=== PATIENT | male | born 1935 | race Caucasian/White ===

== ENCOUNTER → 2019-02-04 10:48 | Outpatient (CLI) | payer MEDICARE, BC, SELFPAY | PROVIDERS: PCP Family Medicine; Visit Provider Physician Assistant | DX: I49.9 Cardiac arrhythmia, unspecified (principal) | CPT/HCPCS: 93005 ==

== ENCOUNTER → 2019-02-08 08:28 | Outpatient (CLI) | payer MEDICARE, BC, SELFPAY | PROVIDERS: PCP Family Medicine; Visit Provider Physician Assistant | DX: I49.9 Cardiac arrhythmia, unspecified (principal) | CPT/HCPCS: 93225; 93226 ==

== ENCOUNTER → 2019-02-16 14:50 | Outpatient (CLI) | payer MEDICARE, BC, SELFPAY ==
--- NOTE | 2019-02-16 14:54 | CA_ITS ---
PROCEDURE: 2-D M-mode and color Doppler study INDICATIONS FOR THE TEST: Chest pain COPD Heart Murmur Tobacco Smokingex Palpitations+ Fatigue+ Syncope Edema Hypertension+Diabetes Mellitus Rheumatic Fever SOB MARSHALL Obesity Hyperlipidemia+ Family History HD Additional History SICK SINUS SYNDROME, BRADYCARDIA,ABN EKG,DIZZINESS PATIENT INFORMATION HEIGHT:67 WEIGHT:185 GENDER: Male B/P:150/99 2-D/M-MODE INTERPRETATION: 2-D MEASUREMENTS OBSERVED VALUES IN CMS Right Ventricular Dimension (RVDd) 2.3 Interventricular Septum (Thickness)(IVsd) 1.0 Left Ventricular Internal Dimensions(LVIDd) 6.1 Left Ventricular Posterior Wall (Thickness)(LVPWd) 1.0 Aortic Root 3.1 Aortic Cusp Separation 2.1 Left Atrial Dimensions (LAD) 2.5 2D 1. Left atrium is mildly enlarged, left ventricle is normal size, mild concentric left ventricular hypertrophy, visually estimated ejection fraction of 55% with no regional wall motion abnormality. Endocardial surfaces are poorly visualized. 2. The right atrium and right ventricle are mildly enlarged with normal contractility. 3. The aortic valve is thickened and calcified leaflet continue to display mobility. 4. The mitral and tricuspid valve leaflets are minimally thickened. 5. The pulmonic valve is poorly present. 6. No significant pericardial effusion noted. DOPPLER INTERROGATION: Doppler interrogation of the aortic, mitral and tricuspid valvular presence of mild mitral and tricuspid regurgitation, tricuspid regurgitation jet velocity is inadequate for calculation of the right ventricular systolic pressure, diastolic parameters are inconclusive. CONCLUSION: 1. Mildly enlarged left atrium, normal left ventricular size, mild concentric left ventricular hypertrophy, visually estimated ejection fraction 55% with no regional wall motion abnormality, endocardial surfaces are poorly visualized. Diastolic parameters are inconclusive 2. Mildly enlarged right ventricle with normal contractility. 3. Mild mitral and tricuspid regurgitation 4. No significant pericardial effusion noted.
== END ==
PROVIDERS: PCP Family Medicine; Visit Provider Urology
DX: R00.2 Palpitations (principal); R40.0 Somnolence; R42 Dizziness and giddiness; R53.1 Weakness; R53.83 Other fatigue; R94.31 Abnormal electrocardiogram [ECG] [EKG]
CPT/HCPCS: 93306

== ENCOUNTER → 2019-02-28 14:28 | Outpatient (CLI) | payer MEDICARE, BC, SELFPAY ==
[2019-02-28 16:45] LABS: Blood Urea Nitrogen 19 mg/dL (7-18); Carbon Dioxide 27 mmol/L (21.0-32.0); Chloride 104 mmol/L (98-107); Creatinine,Serum 1.18 mg/dL (0.70-1.30); Estimated Glomerular Filt Rate 59 ml/min (>60); GFR (African American) 72 ML/MIN (>60); Glucose 98 mg/dL (74-106); Sodium 141 mmol/L (136-145)
== END ==
PROVIDERS: Visit Provider Internal Medicine
DX: I11.9 Hypertensive heart disease without heart failure (principal); R00.1 Bradycardia, unspecified; R42 Dizziness and giddiness
CPT/HCPCS: 36415; 80048

== ENCOUNTER → 2019-03-25 06:56 | Outpatient (CLI) | payer MEDICARE, BC, SELFPAY ==
--- NOTE | 2019-03-25 07:01 | NM_ITS ---
CARDIOLITE SPECT MYOCARDIAL PERFUSION LEXISCAN, REST AND STRESS: History: Hypertension, hyperlipidemia, family history. Procedure: Patient received a 0.4 mg of Lexiscan, resting heart rate was 77 beats per resting blood pressure 171/99, with Lexiscan maximum heart rate achieved was 92 bpm which is less than 85% of the maximum predicted heart rate and a blood pressure 133/80. Electrocardiogram: Resting electrocardiogram showed sinus rhythm, with Lexiscan there is less than 1.[address] segment depression noted from the baseline EKG. The EKG portion of the Lexiscan Myoview is nondiagnostic. Cardiac stress and resting SPECT images: Cardiac stress and resting SPECT images were obtained using technetium 99 Myoview 31.4 mCi stress and 10.2 mCi at rest gated SPECT further analysis of segmental wall motion and calculation of the ejection fraction also done. Cardiac stress and resting SPECT images show uniform myocardial activity without segmental perfusion abnormality, computer derived ejection fraction is 47% with no regional wall motion abnormality, right ventricle is normal size and contractility. Conclusion: 1. The EKG portion of the Lexiscan Myoview is nondiagnostic. 2. No scintigraphic evidence of reversible ischemia seen, either derived ejection fraction is 47% with no regional wall motion abnormality, right ventricle is normal size and contractility. 3. Normal Lexiscan Myoview study.
--- NOTE | 2019-03-25 10:44 | HMH.ITSHM ---
Current Home Medications as stated by this patient Rene Viramontes or traveling sales representative. []
--- NOTE | 2019-03-25 10:44 | HMH.ITSHM ---
Current Home Medications as stated by this patient Rene Viramontes or paper sales representative. []bisoprolol pravastatin amlodipine meloxicam lisinopril allopurinol xarelto
== END ==
LOC: RAD 06:57
PROVIDERS: PCP Family Medicine; Visit Provider Internal Medicine
DX: I10 Essential (primary) hypertension (principal); I48.91 Unspecified atrial fibrillation; R00.0 Tachycardia, unspecified; R94.31 Abnormal electrocardiogram [ECG] [EKG]
CPT/HCPCS: 78452; 93017; A9502; J2785

== ENCOUNTER → 2019-05-03 14:59 | Outpatient (CLI) | payer MEDICARE, BC, SELFPAY | PROVIDERS: PCP Family Medicine; Visit Provider Physician Assistant | DX: R40.0 Somnolence; R53.83 Other fatigue; G47.33 Obstructive sleep apnea (adult) (pediatric) | CPT/HCPCS: G0399 ==

== ENCOUNTER → 2019-10-27 19:42 | Outpatient (CLI) | payer MEDICARE, BC, SELFPAY | PROVIDERS: PCP Family Medicine; Visit Provider Internal Medicine Cardiovascular Disease | DX: G47.33 Obstructive sleep apnea (adult) (pediatric) (principal); I48.91 Unspecified atrial fibrillation | CPT/HCPCS: 95811 ==

== ENCOUNTER → 2020-06-20 11:07 | Outpatient (CLI) | payer MEDICARE, BC, SELFPAY ==
[2020-06-20 12:44] LABS: Anion Gap 12.6 mEq/L (5-15); Blood Urea Nitrogen 25 mg/dl (9-20); Calcium 9.9 mg/dl (8.4-10.2); Carbon Dioxide 29 mmol/L (22.0-30.0); Chloride 102 mmol/L (98-107); Estimated Glomerular Filt Rate 41 ml/min (>60); GFR (African American) 50 ML/MIN (>60); Glucose 94 mg/dl (74-100); Potassium 4.6 mmoL/L (3.5-5.1); Sodium 139 mmol/L (136-145)
== END ==
PROVIDERS: Visit Provider Nurse Practitioner Family
DX: E78.2 Mixed hyperlipidemia (principal); I11.9 Hypertensive heart disease without heart failure; I48.0 Paroxysmal atrial fibrillation; R53.83 Other fatigue; R94.31 Abnormal electrocardiogram [ECG] [EKG]
CPT/HCPCS: 36415; 80048

== ENCOUNTER 2020-08-22 20:06 | Inpatient (IN) | payer MEDICARE, BC, SELFPAY ==
[2020-08-22] VITALS (7 sets, daily range): BP systolic 128–148; BP diastolic 69–94; PULSE 70–78; RESP 16–24; TEMP 36.9–37.2; O2SAT 92–94; BMI 29.4; BMI 28.4
--- NOTE | 2020-08-22 20:32 | XR_ITS ---
PROCEDURE: XR CHEST 2V CLINICAL HISTORY: weakness COMPARISON: CR LS5 LUMBAR SPINE 5 VIEWS from 06/16/2017 FINDINGS: There is cardiomegaly without failure. Bipolar pacemaker is present from left subclavian approach. No lobar consolidation or collapse. There is increased density in the retrocardiac region which may be related to hiatal hernia. There does appear to be an air-fluid level in this area on the lateral view. IMPRESSION: Cardiomegaly with pacemaker present with hiatal hernia. Dictated by: Corbin Millard MD 08/23/2020 05:25 Corbin Millard MD in [place] 08/23/2020 05:25
--- NOTE | 2020-08-22 20:33 | ECG_ITS ---
APPROVED REPORT Exam: Resting ECG HR:71 bpm ECG Measurements Heart Rate 71 AXES MD 114 P -7 QRSd 74 QRS 16 QT 404 T 7 QTc 439 Conclusion Normal sinus rhythm Nonspecific ST abnormality Abnormal ECG Electronically signed by : Ricardo Sanchez, 08/24/2020 18:16:02
--- NOTE | 2020-08-22 20:38 | HMH.EDWEAK ---
ED Disposition Clinical Impression: MONISHA (acute kidney injury) Disposition: Admitted As Inpatient Condition on Discharge: Fair Referrals: Aki Smith MD [Primary Care Provider] - - Critical Care Critical Care Time: No Attestation: On 08/22/20, the high probability of a clinically significant, sudden or life threatening deterioration of the following system(s) required my full and direct attention, intervention and personal management. The time I documented below is in addition to time spent performing reported procedures but includes the following listed in this critical care notation. Medical Decision Making - Medical Records Medical records reviewed: Yes: I reviewed the patient's medical records. - [place] Inquiry Pt receiving controlled substance: No Vital Signs: 08/22/20 20:07 08/22/20 20:38 08/22/20 21:04 Temperature 98.9 F Temperature Source Oral Pulse Rate [Left Radial] 71 70 78 Respiratory Rate 16 18 16 Blood Pressure [Right Arm] 128/82 134/94 H 148/90 H Blood Pressure Mean [Right Arm] 97 107 109 Blood Pressure Source [Right Arm] Automatic Cuff Automatic Cuff Blood Pressure Position [Right Arm] Sitting Sitting 02 Sat by Pulse Oximetry 94 L 92 L 93 L Oxygen Delivery Method Room Air Room Air Room Air - Lab Data Lab results reviewed: Yes: I reviewed the patient's lab results. Lab Results 08/22/20 20:20: WBC 3.8 L, RBC 4.25 L, Hgb 13.4 L, Hct 41.8 L, MCV 98.3 H, MCH 31.6 H, MCHC 32.1, RDW 14.0, Plt Count 170, MPV 7.2 L, Neut % (Auto) 64.4, Lymph % (Auto) 23.3, [place] % (Auto) 11.0 H, Eos % (Auto) 0.4, Baso % (Auto) 1.0, Neut # (Auto) 2.4, Lymph # (Auto) 0.9, [place] # (Auto) 0.4, Eos # (Auto) 0.0, Baso # (Auto) 0.0 08/22/20 20:20: Sodium 140, Potassium 4.4, Chloride 104, Carbon Dioxide 25, Anion Gap 15.4 H, BUN 41 H, Creatinine 3.10 H, Estimated Creat Clear 22, Estimated GFR 19 L*, Est GFR ( Amer) 23 L, Glucose 117 H, Calcium 8.8, Total Bilirubin 0.3, AST 34, ALT 20, Alkaline Phosphatase 79, Troponin I < 0.01, Total Protein 7.3, Albumin 4.3, Globulin 3.0, Albumin/Globulin Ratio 1.4, TSH 3.78 08/22/20 20:20: Free T4 1.13 Result diagrams: 08/22/20 20:20 08/22/20 20:20 Orders (Tests/Meds): ED MEDICATIONS Generic Name Dose Route Start Last Admin Trade Name Freq PRN Reason Stop Dose Admin Sodium Chloride 1,000 mls @ 999 mls/hr 08/22/20 20:45 08/22/20 20:47 Sod Chlor 0.9% 1000ml Bag IV 08/22/20 21:45 999 mls/hr .Q1H1M JANNETH Administration ORDERS Category Date Time Status XR chest 2V Stat Exams 08/22/20 20:32 Taken Covid-19 IgG/IgM ([facility]) Stat Lab 08/22/20 21:29 Ordered Troponin I Q3H Lab 08/22/20 23:45 Ordered Troponin I Q3H Lab 08/23/20 02:45 Ordered Urinalysis and Microscopic Stat Lab 08/22/20 21:24 Ordered - Radiology Data #1 Image(s): Chest Image Reviewed: Yes I reviewed the patient's radiology image Preliminary Findings: Abnormal (cm ) - ECG Data Tracing #1 Normal Sinus Rhythm: Yes Ischemic changes: non-specific ST-T wave changes - Physician Consults Physician Consulted: adarsh Reason -: Admission Weakness HPI - General Chief complaint: Weakness Stated complaint: Pace marker year ago BP dropping Time Seen by Provider: 08/22/20 20:38 Mode of Arrival: Ambulatory Source of Information: Patient, Relative, Medical Record Limitations: No Limitations Description of Symptoms (Recalled from ER Triage Doc. by RN): pt stated he has been feeling tired and weak since last night. pt family stated they took the pts BP manually at home tonight and got mid 80s systolic so the family brought him in to be assessedat the ER. pt denies any chest pain or SOB at this time and stated he feels like he doesnt have as much energy as he usually does. - History of Present Illness HPI Narrative: pt with weakness and low bp tonight - no vomiting or diarrhea - no chest pain - no syncope MD Complaint: generalized weakness Onset (ago): day(s) Migration:
[2020-08-22 20:45] LABS: Chloride 104 mmol/L (98-107); Potassium 4.4 mmoL/L (3.5-5.1); Sodium 140 mmol/L (136-145)
[2020-08-22 20:46] LABS: Eosinophils % 0.4 % (0.1-12.0); Hematocrit 41.8 % (42.0-52.0); Hemoglobin 13.4 g/dL (14.1-18.0); Lymphocytes # 0.9 K/mm3 (0.7-4.5); Lymphocytes % 23.3 % (10-50); Mean Corpuscular HGB Conc 32.1 g/dL (31.8-35.4); Mean Corpuscular Hemoglobin 31.6 pg (27.0-31.2); Mean Corpuscular Volume 98.3 fl (80-94); Mean Platelet Volume 7.2 fl (7.4-10.4); Monocytes # 0.4 K/mm3 (0.1-1.0); Neutrophils # 2.4 K/mm3 (1.8-7.8); Neutrophils % 64.4 % (37.0-80.0); Platelet Count 170 K/mm3 (142-424); Red Blood Count 4.25 M/mm3 (4.60-6.20); White Blood Count 3.8 K/mm3 (4.8-10.8)
[2020-08-22 20:48] LABS: Alanine Aminotransferase 20 U/L (12-78); Albumin Level 4.3 g/dl (3.5-5.0); Albumin/Globulin Ratio 1.4 (1.1-1.8); Alkaline Phosphatase 79 U/L (38-126); Anion Gap 15.4 mEq/L (5-15); Aspartate Amino Transferase 34 U/L (17-59); Bilirubin,Total 0.3 mg/dl (0.2-1.3); Blood Urea Nitrogen 41 mg/dl (9-20); Carbon Dioxide 25 mmol/L (22.0-30.0); Creatinine Clearance Estimated 22 mL/min (50-200); Estimated Glomerular Filt Rate 19 ml/min (>60); GFR (African American) 23 ML/MIN (>60); Total Protein,Serum 7.3 g/dl (6.3-8.2)
[2020-08-22 20:49] LABS: Calcium 8.8 mg/dl (8.4-10.2); Glucose 117 mg/dl (74-100)
[2020-08-22 21:03] LABS: Troponin I < 0.01 ng/ml (0.00-0.034)
[2020-08-22 21:13] LABS: Free T4 (Free Thyroxine) 1.13 ng/dl (0.78-2.19)
[2020-08-22 21:19] LABS: Thyroid Stimulating Hormone 3.78 uIU/mL (0.465-4.68)
--- NOTE | 2020-08-22 21:40 | PC.NURSE ---
speaking with Dr. Lovett for admission
[2020-08-22 22:10] LABS: Coronavirus 19 IgG Antibody Negative (Negative); Coronavirus 19 IgM Antibody Negative (Negative)
--- NOTE | 2020-08-22 22:11 | PC.NURSE ---
called for second floor nurse to get report
--- NOTE | 2020-08-22 23:19 | PC.NURSE ---
patient arrived to floor via wheelchair 22:33.
[2020-08-23] VITALS (7 sets, daily range): BP systolic 104–125; BP diastolic 60–79; PULSE 70–77; RESP 17–21; TEMP 36.7–37.7; O2SAT 90–95; BMI 28.4
[2020-08-23 00:23] LABS: Troponin I < 0.01 ng/ml (0.00-0.034)
--- NOTE | 2020-08-23 02:39 | PC.NURSE ---
Pt is alert and oriented x4. Pt denies any pain since arriving to unit. Denies nausea and vomiting. States he just feels weak and tired . Pt has rested well with eyes closed thus far. PERRLA. Bilateral hand hedis nurse noted equal and strong. Cap refill < 3 seconds. Bilateral lungs noted clear t/o upon auscultation. Tolerated RA well with no c/o SOA. Abdomen noted soft and non-tender upon palpation. Adequate urine output. Pt prefers walking to the bathroom with standby assist versus using the urinal. Tolerates amb well with standby. Refused teds and non-skid socks. Encouraged use of non-skid socks due to weakness. Skin noted C/D/I. No edema noted. NSR noted on director cardiac thus far. VSS. Remains safe. Call light within reach. Will continue to monitor.
[2020-08-23 03:02] LABS: Troponin I < 0.01 ng/ml (0.00-0.034)
[2020-08-23 06:56] LABS: Basophils % 0.5 % (0.1-2.0); Eosinophils % 0.6 % (0.1-12.0); Hematocrit 38.1 % (42.0-52.0); Lymphocytes % 31.6 % (10-50); Mean Corpuscular HGB Conc 31.3 g/dL (31.8-35.4); Mean Corpuscular Hemoglobin 30.9 pg (27.0-31.2); Mean Corpuscular Volume 98.8 fl (80-94); Mean Platelet Volume 7.2 fl (7.4-10.4); Monocytes # 0.3 K/mm3 (0.1-1.0); Monocytes % 10.1 % (1.7-9.3); Neutrophils # 1.9 K/mm3 (1.8-7.8); Neutrophils % 57.2 % (37.0-80.0); Platelet Count 142 K/mm3 (142-424); Red Blood Count 3.86 M/mm3 (4.60-6.20); Red Cell Distribution Width 14.1 % (11.5-17.5); White Blood Count 3.3 K/mm3 (4.8-10.8)
--- NOTE | 2020-08-23 07:23 | HMH.PHAVTE ---
[facility] Pharmacy VTE Monitoring - Patient Demographics Admission date: 08/22/20 Report Date: 08/23/20 Time: 07:23 Allergies/Adverse Reactions: Patient Allergies No Known Allergies Allergy (Verified 08/01/20 09:48) Height: 1.7 m Weight: 82.27 kg Patient Problems: Current Active Problems MONISHA (acute kidney injury) (Acute) - VTE Risk Labs: VTE Related Lab Results Hgb 13.4 g/dL (14.1-18.0) L 08/22/20 20:20 Hct 41.8 % (42.0-52.0) L 08/22/20 20:20 Plt Count 170 K/mm3 (142-424) 08/22/20 20:20 BUN 41 mg/dl (9-20) H 08/22/20 20:20 Creatinine 3.10 mg/dl (0.66-1.25) H 08/22/20 20:20 Estimated Creat Clear 22 mL/min (50-200) 08/22/20 20:20 Was VTE Risk Assessment Performed: Yes VTE Score: 4 VTE Risk Level: Low Risk - Prophylaxis VTE Prophylaxis Ordered?: Yes Types of VTE Prophylaxis: TEDS Knee High Location of Applied Device: Bilateral Lower Extremeties
[2020-08-23 07:52] LABS: Chloride 106 mmol/L (98-107); Sodium 139 mmol/L (136-145)
[2020-08-23 07:55] LABS: Blood Urea Nitrogen 37 mg/dl (9-20); Calcium 8.2 mg/dl (8.4-10.2); Carbon Dioxide 26 mmol/L (22.0-30.0); Creatinine Clearance Estimated 28 mL/min (50-200); Estimated Glomerular Filt Rate 27 ml/min (>60); GFR (African American) 33 ML/MIN (>60); Glucose 97 mg/dl (74-100); Magnesium 1.5 mg/dl (1.6-2.3)
--- NOTE | 2020-08-23 08:00 | CA_ITS ---
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: Antonette Martínez, RT(R) Ht: 5 ft 7 in Wt: 188lbs BSA: 1.97 BP: 148/90 mmHg Indications: MURMUR,PP,FATIGUE,H/O AF,HTN 2D Dimensions LVOT 1.92 cm (M/F) 1.5-2.5 M-Mode Dimensions RVDd 2.90 cm (0.9-2.6) LA Diam 2.66 cm (1.9-4.0) LVDd 5.47 cm (3.5-5.7) Ao Diam 3.67 cm (2.0-3.7) LVDs 3.94 cm (3.5-5.7) IVSd 1.13 cm (0.6-1.1) PWd 0.93 cm (0.6-1.1) EF (Teich) 53.60% FS 28.00% EDV (Teich) 145.60 mL ESV (Teich) 67.50 mL LV Diastology E Decel Time 180.00 (160-240 msec) E/A Ratio 0.8 MED E' 4.70 (< 7 cm/sec) E'/MED E' Ratio 13.04 (>14) LAT E' 6.20 (<10 cm/sec) E/LAT E' Ratio 9.89 (>14) Mitral Valve MV E Max Don. 61.00 (40-130 cm/s) MV A Velocity 73.00 (40-130 cm/s) E/A Ratio 0.84 MV Decel. Time 180.00 (160-240 ms) MV PHT 53.00 ms Tricuspid Valve TR P. Velocity 283.00 cm/s RAP Estimate 10.00 mmHg RVSP 42.10 mmHg Left Ventricle Left atrium is mildly enlarged, left ventricle is normal size, mild concentric left ventricular hypertrophy, visually estimated ejection fraction 55% with no regional wall motion abnormality, grade 1 diastolic dysfunction seen without tissue Doppler evidence of raise left atrial pressure. Right Ventricle Right atrium and right ventricle are mildly enlarged with normal contractility. There is a pacemaker lead seen the right ventricle. Aortic Valve Aortic valve is minimally thickened and fibrosed, there is no aortic stenosis or aortic insufficiency. Mitral Valve Mitral valve leaflets are minimally thickened, there is mild mitral regurgitation Tricuspid Valve Tricuspid valve is grossly normal, there is mild tricuspid regurgitation calculated right ventricular systolic pressure is 42 mmHg. Pulmonic Valve Pulmonic valve is poorly visualized. Great Vessels Aortic root is normal size. Pericardium No significant pericardial effusion noted. Conclusion 1. Biatrial enlargement, normal left ventricular size, mild concentric left ventricular hypertrophy, visually estimated ejection fraction 55% with no regional wall motion abnormality, grade 1 diastolic dysfunction seen without tissue Doppler evidence of raise left atrial pressure. 2. Mildly enlarged right ventricle with normal contractility. 3. Mild mitral and tricuspid regurgitation, calculated right ventricular systolic pressure is 42 mmHg. 4. No significant pericardial effusion noted. Electronically signed by : Jesus Oscar, 08/23/2020 15:39:10
[2020-08-23 08:07] LABS: Hemoglobin 11.9 g/dL (14.1-18.0)
--- NOTE | 2020-08-23 08:07 | HMH.PHAINT ---
MEDICATION RECONCILIATION COMPLETED ON PATIENT USING EXTERNAL FILL HISTORY FROM PHARMACY. -MARTIN LAURENT, ANAD
--- NOTE | 2020-08-23 08:30 | HMH.HP ---
*Admission Date: 08/22/20 <Yadi Unger 08/23/20 08:37> *Chief complaint: Acute Kidney Injury <Justino Unger08/23/20 08:37> *History of present illness: Mr. 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 He describes a two-day history of generalized weakness, decreased appetite, and fatigue at home. When he mentioned his symptoms to family yesterday evening, it was found that his blood pressure was low with systolic readings in the 80's and he was brought to the [facility] for evaluation. He denied any vomiting or diarrhea. He did not have any pain, chest pain, or shortness of breath. Upon arrival, bloodwork showed an elevated BUN of 41 and creatinine of 3.10 with GFR 19. His CXR showed cardiomegaly with pacemaker present with hiatal hernia. EKG showed NSR with nonspecific ST-T wave changes. He was admitted for gentle IV hydration. This morning he is resting comfortably in bed with his son at the bedside. He denies any complaint and reports feeling much better than he did prior to admission. He tolerated breakfast well. He has been up to void. <Justino Unger08/23/20 08:56> [facility] History Medical History: Reports:: Anxiety, Atrial Fibrillation, Gastroesophageal Reflux Disease(GERD), Hiatal Hernia, Hyperlipidemia, Hypertension, Internal Pacemaker Denies:: Cancer, Diabetes Mellitus Type 1, Diabetes Mellitus Type 2, MRSA, Seizures <Justino Unger08/23/20 08:56> *Have you ever received a pneumonia vaccine?: Yes <Justino Unger08/23/20 08:37> *Have you received a flu vaccine this season?: Yes <Justino Unger08/23/20 08:37> Other Medical History: Reports: Arthritis, Other ([place]). Denies: Blood Transfusion Reaction <Justino Unger08/23/20 08:37> Other Surgeries: Yes: Cardiac Catheterization, Hernia Repair, Pacemaker <Justino Unger08/23/20 08:37> Amputation: No <Justino Unger08/23/20 08:37> Fractures: No <Justino Unger08/23/20 08:37> - *Social History Last grade of school completed: 11th or 12th <CornelYadi 08/23/20 08:37> Smoking Status: Former smoker <Justino Unger08/23/20 08:37> Tobacco Type: pipe <CornelJustino08/23/20 08:37> Alcohol Intake: never <Justino Unger08/23/20 08:37> Alcohol Intake Frequency:: other <Justino Unger08/23/20 08:37> Substance Use Type: denies use <Justino Unger08/23/20 08:37> *Occupational Status:: retired <Justino Unger08/23/20 08:37> Housing: house <Justino Unger08/23/20 08:37> Household Members: none <Justino Unger08/23/20 08:37> *Travel in the last 8 weeks: None <Justino Unger08/23/20 08:37> - Psychiatric History Pschychiatric History:: Reports:: Anxiety <Justino Unger08/23/20 08:37> Family Hx:: Diabetes <Cornel08/23/20 08:37> Review of Systems - Constitutional Reports daytime sleepiness, Reports fatigue, Reports lack of energy, Reports weakness, Denies body ache(s), Denies chills, Denies fever(s), Denies headache(s), Denies increased appetite, Denies weight gain, Denies weight loss <Justino Unger08/23/20 08:56> - Eyes Denies blurry vision, Denies change in vision <Cornel08/23/20 08:56> - ENT Denies dizziness, Denies nasal congestion, Denies nasal discharge, Denies sinus pressure, Denies sore throat, Denies dizziness <Cornel08/23/20 08:56> - *Cardiovascular Reports leg swelling, Denies chest pain, Denies shortness of breath, Denies shortness of breath with activity, Denies irregular heart rhythm, Denies lightheadedness <Justino Unger08/23/20 08:56> - *Respiratory Denies chest congestion, Denies cough, Denies shortness of breath, Denies shortness of breath with activity <Yadi Unger 08/23/20 08:56> - *Gastrointestinal Reports nausea, Denies abdominal pain, Denies change in bowel habits, Denies vomiting <Yadi Unger 08/23/20 08:56> - *Genitourinary Denies difficulty urinating, Denies decreased urination <Yadi Unger 08/23/20 08:56> - *Neurologic Reports weakness, Denies unsteadiness, Denies dizziness, Manuel
--- NOTE | 2020-08-23 10:15 | PC.NURSE ---
REPORT GIVEN TO NIRMAL BERMEO RN. PATIENT HAS REMAINED A/OX4 MY SHIFT. NO COMPLAINTS VOICED. LUNGS CTA AND BOWEL SOUNDS ACTIVE X4. NO DISTRESS THIS SHIFT. NO WEAKNESS REPORTED.
--- NOTE | 2020-08-23 20:29 | PC.NURSE ---
PT IS RESTING IN BED. NO COMPLAINTS OF DISCOMFORT. PT STATES HE HAS NOT HAD ANY DIZZINESS AT ALL T/O THE SHIFT. TOLERATED AMBULATING TO THE BATHROOM AND TAKING A SHOWER. PACED ON THE MONITOR. SKIN C/D/I. EATING AND DRINKING WELL. VSS. WILL CONTINUE TO MONITOR.
--- NOTE | 2020-08-23 22:21 | PC.NURSE ---
2100 COURTESY ROUND PT AWAKE . TRASH AND URINAL EMPTIED. ICE WATER REFILLED AT THIS TIME.
[2020-08-24] VITALS: BP 121/67; PULSE 70; PULSE 73; RESP 16; TEMP 38.2; O2SAT 90
[2020-08-24 04:00] VITALS: BP 110/60; PULSE 70; PULSE 73; RESP 16; TEMP 37.9; O2SAT 94
[2020-08-24 05:02] VITALS: BMI 29.5
--- NOTE | 2020-08-24 06:22 | PC.NURSE ---
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
[2020-08-24 06:30] LABS: Basophils % 0.5 % (0.1-2.0); Eosinophils % 0.9 % (0.1-12.0); Hematocrit 37.6 % (42.0-52.0); Hemoglobin 12.4 g/dL (14.1-18.0); Lymphocytes # 0.9 K/mm3 (0.7-4.5); Lymphocytes % 27.4 % (10-50); Mean Corpuscular HGB Conc 32.9 g/dL (31.8-35.4); Mean Corpuscular Hemoglobin 31.9 pg (27.0-31.2); Mean Corpuscular Volume 97.2 fl (80-94); Mean Platelet Volume 7.3 fl (7.4-10.4); Monocytes # 0.3 K/mm3 (0.1-1.0); Monocytes % 10.3 % (1.7-9.3); Platelet Count 138 K/mm3 (142-424); Red Blood Count 3.87 M/mm3 (4.60-6.20); Red Cell Distribution Width 14.3 % (11.5-17.5); White Blood Count 3.3 K/mm3 (4.8-10.8)
[2020-08-24 06:31] LABS: Chloride 107 mmol/L (98-107); Potassium 4.1 mmoL/L (3.5-5.1); Sodium 137 mmol/L (136-145)
[2020-08-24 06:34] LABS: Anion Gap 8.1 mEq/L (5-15); Blood Urea Nitrogen 27 mg/dl (9-20); Carbon Dioxide 26 mmol/L (22.0-30.0); Creatinine Clearance Estimated 42 mL/min (50-200); Estimated Glomerular Filt Rate 41 ml/min (>60); GFR (African American) 50 ML/MIN (>60); Glucose 95 mg/dl (74-100)
[2020-08-24 08:00] VITALS: BP 111/58; PULSE 80; PULSE 88; RESP 18; TEMP 37.2; O2SAT 93
--- NOTE | 2020-08-24 08:24 | HMH.ACPN2 ---
<Yadi Unger - Last Filed: 08/24/20 08:26> Internal Medicine - PN: Subj *Date: 08/24/20 *Time: 08:26 Interval history: Pt reports feeling much better this morning. He denies any pain or SOB. He has been voiding qshift and had normal BM this morning. Note fever 100.2F. Exam Vital signs and Labs for Last 24 Hours: Temp Pulse Resp BP Pulse Ox 100.2 F H 73 16 110/60 94 L 08/24/20 04:00 08/24/20 04:00 08/24/20 04:00 08/24/20 04:00 08/24/20 04:00 Laboratory Results - last 24 hr 08/24/20 05:56: WBC 3.3 L, RBC 3.87 L, Hgb 12.4 L, Hct 37.6 L, MCV 97.2 H, MCH 31.9 H, MCHC 32.9, RDW 14.3, Plt Count 138 L, MPV 7.3 L, Neut % (Auto) 61.0, Lymph % (Auto) 27.4, [place] % (Auto) 10.3 H, Eos % (Auto) 0.9, Baso % (Auto) 0.5, Neut # (Auto) 2.0, Lymph # (Auto) 0.9, [place] # (Auto) 0.3, Eos # (Auto) 0.0, Baso # (Auto) 0.0 08/24/20 05:56: Sodium 137, Potassium 4.1, Chloride 107, Carbon Dioxide 26, Anion Gap 8.1, BUN 27 H D, Creatinine 1.60 H D, Estimated Creat Clear 42, Estimated GFR 41 L, Est GFR ( Amer) 50 L D, Glucose 95, Calcium 8.0 L I & O for Last 24 hours: Intake & Output 08/21/20 08/22/20 08/23/20 08/24/20 11:59 11:59 11:59 11:59 Intake Total 939 / 939 1480 / 1480 Output Total 125 / 125 Balance 814 / 814 1480 / 1480 Weight 181 lb 5.989 oz 188 lb 5 oz - Constitutional no acute distress - *Routine HEENT Exam Head: Present: normocephalic ENT: Present: mucous membranes moist - *Routine Respiratory Exam Present: CTA bilaterally. Absent: rhonchi, wheezes - *Routine Cardiovascular Exam Present: irregularly irregular - *Routine Abdominal Exam Present: soft, normoactive bowel sounds, obese. Absent: tenderness, distended, guarding, firm, rigid - *Routine Extremities Exam Present: full ROM, pulses intact. Absent: edema, calf tenderness - *Routine Neurological Exam Present: alert, oriented X3, moving all extremities, normal speech Assessment and Plan (1) MONISHA (acute kidney injury) Status: Acute Category: Medical Code(s): N17.9 - Acute kidney failure, unspecified (2) Dehydration Status: Acute Category: Medical Code(s): E86.0 - Dehydration (3) CKD (chronic kidney disease) stage 3, GFR 30-59 ml/min Status: Acute Qualifiers: Chronic kidney disease stage 3 subtype: stage 3b (GFR 30-44) Qualified Code(s): N18.32 - Chronic kidney disease, stage 3b Category: Medical Code(s): N18.30 - Chronic kidney disease, stage 3 unspecified (4) GERD (gastroesophageal reflux disease) Status: Acute Category: Medical Code(s): K21.9 - Gastro-esophageal reflux disease without esophagitis (5) Atrial fibrillation Status: Chronic Qualifiers: Atrial fibrillation type: paroxysmal Qualified Code(s): I48.0 - Paroxysmal atrial fibrillation Category: Medical Code(s): I48.91 - Unspecified atrial fibrillation (6) HTN (hypertension) Status: Chronic Qualifiers: Hypertension type: essential hypertension Qualified Code(s): I10 - Essential (primary) hypertension Category: Medical Code(s): I10 - Essential (primary) hypertension - Assessment and plan all Dx Assessment and Plan for all problems:: Will obtain UA. Further per Dr. Smith. <Aki Smith - Last Filed: 08/24/20 08:39> Internal Medicine - PN: Subj *Date: 08/24/20 *Time: 08:38 Exam Vital signs and Labs for Last 24 Hours: Temp Pulse Resp BP Pulse Ox 100.2 F H 73 16 110/60 94 L 08/24/20 04:00 08/24/20 04:00 08/24/20 04:00 08/24/20 04:00 08/24/20 04:00 Laboratory Results - last 24 hr 08/24/20 05:56: WBC 3.3 L, RBC 3.87 L, Hgb 12.4 L, Hct 37.6 L, MCV 97.2 H, MCH 31.9 H, MCHC 32.9, RDW 14.3, Plt Count 138 L, MPV 7.3 L, Neut % (Auto) 61.0, Lymph % (Auto) 27.4, [place] % (Auto) 10.3 H, Eos % (Auto) 0.9, Baso % (Auto) 0.5, Neut # (Auto) 2.0, Lymph # (Auto) 0.9, [place] # (Auto) 0.3, Eos # (Auto) 0.0, Baso # (Auto) 0.0 08/24/20 05:56: Sodium 137, Potassium 4.1, Chloride 107, Car
[2020-08-24 10:47] LABS: Microscopic, Urine URINE MICROSCOPIC (MICROSCOPIC)
[2020-08-24 11:03] LABS: Appearance,Urine CLEAR (Clear); Bilirubin,Urine Negative (Negative); Blood, Urine Negative (Negative); Color,Urine YELLOW (Yellow); Glucose,Urine (UA) Negative (Negative); Ketones,Urine Negative (Negative); Leukocyte Esterase,Urine Negative (Negative); Nitrate,Urine Negative (Negative); Protein,Urine Negative (Negative); Urobilinogen,Urine 0.2 EU/dl (0.2)
[2020-08-24 11:48] LABS: Bacteria,Urine Trace /lpf; Squamous Epithelial Cell,Urine Occasional #/hpf (0-5); WBC,Urine Occasional #/hpf (0-3)
[2020-08-24 12:00] VITALS: BP 112/69; PULSE 70; PULSE 76; RESP 18; TEMP 37.1; O2SAT 90
--- NOTE | 2020-08-24 14:31 | P.PN_ITS ---
Internal Medicine - PN: Subj *Date: 08/24/20 *Time: 14:31 Exam Vital signs and Labs for Last 24 Hours: Temp Pulse Resp BP Pulse Ox 98.7 F 76 18 112/69 90 L 08/24/20 12:00 08/24/20 12:00 08/24/20 12:00 08/24/20 12:00 08/24/20 12:00 Laboratory Results - last 24 hr 08/24/20 05:56: WBC 3.3 L, RBC 3.87 L, Hgb 12.4 L, Hct 37.6 L, MCV 97.2 H, MCH 31.9 H, MCHC 32.9, RDW 14.3, Plt Count 138 L, MPV 7.3 L, Neut % (Auto) 61.0, Lymph % (Auto) 27.4, [place] % (Auto) 10.3 H, Eos % (Auto) 0.9, Baso % (Auto) 0.5, Neut # (Auto) 2.0, Lymph # (Auto) 0.9, [place] # (Auto) 0.3, Eos # (Auto) 0.0, Baso # (Auto) 0.0 08/24/20 05:56: Sodium 137, Potassium 4.1, Chloride 107, Carbon Dioxide 26, Anion Gap 8.1, BUN 27 H D, Creatinine 1.60 H D, Estimated Creat Clear 42, Estimated GFR 41 L, Est GFR ( Amer) 50 L D, Glucose 95, Calcium 8.0 L 08/24/20 09:50: Urine Color Yellow, Urine Appearance Clear, Urine pH 6.0, Ur Specific [place] 1.020, Urine Protein Negative, Urine Glucose (UA) Negative, Urine Ketones Negative, Urine Blood Negative, Urine Nitrate Negative, Urine Bilirubin Negative, Urine Urobilinogen 0.2, Ur Leukocyte Esterase Negative, Urine WBC Occasional, Ur Squamous Epith Cells Occasional, Urine Bacteria Trace I & O for Last 24 hours: Intake & Output 08/21/20 08/22/20 08/23/20 08/24/20 23:59 23:59 23:59 23:59 Intake Total 1690 / 1690 1089 / 1089 Output Total 125 / 125 Balance 1565 / 1565 1089 / 1089 Weight 181 lb 6 oz 181 lb 5.989 oz 188 lb 5 oz Narrative: UA has some bacteria Assessment and Plan (1) MONISHA (acute kidney injury) Status: Acute Category: Medical Code(s): N17.9 - Acute kidney failure, unspecified (2) Dehydration Status: Acute Category: Medical Code(s): E86.0 - Dehydration (3) CKD (chronic kidney disease) stage 3, GFR 30-59 ml/min Status: Acute Qualifiers: Chronic kidney disease stage 3 subtype: stage 3b (GFR 30-44) Qualified Code(s): N18.32 - Chronic kidney disease, stage 3b Category: Medical Code(s): N18.30 - Chronic kidney disease, stage 3 unspecified (4) GERD (gastroesophageal reflux disease) Status: Acute Category: Medical Code(s): K21.9 - Gastro-esophageal reflux disease without esophagitis (5) Atrial fibrillation Status: Chronic Qualifiers: Atrial fibrillation type: paroxysmal Qualified Code(s): I48.0 - Paroxysmal atrial fibrillation Category: Medical Code(s): I48.91 - Unspecified atrial fibrillation (6) HTN (hypertension) Status: Chronic Qualifiers: Hypertension type: essential hypertension Qualified Code(s): I10 - [place] l (primary) hypertension Category: Medical Code(s): I10 - Essential (primary) hypertension (7) UTI (urinary tract infection) Status: Acute Category: Medical Code(s): N39.0 - Urinary tract infection, site not specified - Assessment and plan all Dx Assessment and Plan for all problems:: Plan discharge home today with Macrobid, with office f/u in 3 days.
--- NOTE | 2020-08-26 20:20 | HMH.DCSUM ---
General - General Admission date:: 08/22/20 Discharge date: 08/24/20 HPI HPI: Mr. 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 He described a two-day history of generalized weakness, decreased appetite, and fatigue at home. When he mentioned his symptoms to family the previous evening, it was found that his blood pressure was low with systolic readings in the 80's and he was brought to the [facility] for evaluation. He denied any vomiting or diarrhea. He did not have any pain, chest pain, or shortness of breath. Upon arrival, bloodwork showed an elevated BUN of 41 and creatinine of 3.10 with GFR 19. His CXR showed cardiomegaly with pacemaker present with hiatal hernia. EKG showed NSR with nonspecific ST-T wave changes. He was admitted for gentle IV hydration. The following morning he was resting comfortably in bed with his son at the bedside. He denied any complaint and reported feeling much better than he did prior to admission. He tolerated breakfast well. He had been up to void. Hospital Course Hospital Course: Patient was given an IV fluid bolus in the emergency room. He was started on maintenance fluids at 75 an hour and his home medicines. The following day he was doing much better. He was voiding QS. Urinalysis was obtained and showed some bacteriuria. Renal function showed improvement with hydration with a BUN of 27, creatinine 1.6 and GFR 41. In the p.m. of 08/24/2020 patient was discharged home in stable and satisfactory condition. He was placed on Macrobid and was to follow-up in the office with Dr. Smith in 3 days. See Data for specific lab and test results. Objective Vital signs: Temp Pulse Resp BP Pulse Ox 98.7 F 76 18 112/69 90 L 08/24/20 12:00 08/24/20 12:00 08/24/20 12:00 08/24/20 12:00 08/24/20 12:00 Narrative: Exam Vital signs and Labs for Last 24 Hours: Temp Pulse Resp BP Pulse Ox 98.7 F 76 18 112/69 90 L 08/24/20 12:00 08/24/20 12:00 08/24/20 12:00 08/24/20 12:00 08/24/20 12:00 Laboratory Results - last 24 hr 08/24/20 05:56: WBC 3.3 L, RBC 3.87 L, Hgb 12.4 L, Hct 37.6 L, MCV 97.2 H, MCH 31.9 H, MCHC 32.9, RDW 14.3, Plt Count 138 L, MPV 7.3 L, Neut % (Auto) 61.0, Lymph % (Auto) 27.4, [place] % (Auto) 10.3 H, Eos % (Auto) 0.9, Baso % (Auto) 0.5, Neut # (Auto) 2.0, Lymph # (Auto) 0.9, [place] # (Auto) 0.3, Eos # (Auto) 0.0, Baso # (Auto) 0.0 08/24/20 05:56: Sodium 137, Potassium 4.1, Chloride 107, Carbon Dioxide 26, Anion Gap 8.1, BUN 27 H D, Creatinine 1.6 Exam Vital signs and Labs for Last 24 Hours: Temp Pulse Resp BP Pulse Ox 100.2 F H 73 16 110/60 94 L 08/24/20 04:00 08/24/20 04:00 08/24/20 04:00 08/24/20 04:00 08/24/20 04:00 Laboratory Results - last 24 hr 08/24/20 05:56: WBC 3.3 L, RBC 3.87 L, Hgb 12.4 L, Hct 37.6 L, MCV 97.2 H, MCH 31.9 H, MCHC 32.9, RDW 14.3, Plt Count 138 L, MPV 7.3 L, Neut % (Auto) 61.0, Lymph % (Auto) 27.4, [place] % (Auto) 10.3 H, Eos % (Auto) 0.9, Baso % (Auto) 0.5, Neut # (Auto) 2.0, Lymph # (Auto) 0.9, [place] # (Auto) 0.3, Eos # (Auto) 0.0, Baso # (Auto) 0.0 08/24/20 05:56: Sodium 137, Potassium 4.1, Chloride 107, Carbon Dioxide 26, Anion Gap 8.1, BUN 27 H D, Creatinine 1.60 H D, Estimated Creat Clear 42, Estimated GFR 41 L, Est GFR ( Amer) 50 L D, Glucose 95, Calcium 8.0 L I & O for Last 24 hours: Intake & Output 08/21/20 08/22/20 08/23/20 08/24/20 11:59 11:59 11:59 11:59 Intake Total 939 / 939 1480 / 1480 Output Total 125 / 125 Balance 814 / 814 1480 / 1480 Weight 181 lb 5.989 oz 188 lb 5 oz - Constitutional no acute distress - *Routine HEENT Exam Head: Present: normocephalic ENT: Present: mucous membranes moist - *Routine Respiratory Exam Present: CTA bilaterally. Absent: rhonchi, wheezes - *Routine Cardiovascular Exam Present: irregularly irregular - *Routine Abdominal Exam Present: soft, normoactive bowel sounds, obes
== END 2020-08-24 15:30 | disposition home or self-care (01) | DRG 683 ==
LOC: ER 20:47 → 2ND 21:54
PROVIDERS: Nurse Practitioner; Admitting Provider Family Medicine; Emergency Provider Emergency Medicine; PCP Family Medicine; Visit Provider Family Medicine
DX: I12.9 Hypertensive chronic kidney disease with stage 1 through stage 4 chronic kidney disease, or unspecified chronic kidney disease (principal); N17.9 Acute kidney failure, unspecified; N39.0 Urinary tract infection, site not specified; I48.20 Chronic atrial fibrillation, unspecified; N18.32 Chronic kidney disease, stage 3b; Z87.891 Personal history of nicotine dependence; E78.5 Hyperlipidemia, unspecified; E86.0 Dehydration; Z95.0 Presence of cardiac pacemaker; K21.9 Gastro-esophageal reflux disease without esophagitis; M19.90 Unspecified osteoarthritis, unspecified site; M10.9 Gout, unspecified
CPT/HCPCS: 36415; 71046; 80048; 80053; 81001; 83735; 84439; 84443; 84484; 85025; 86328; 93005; 93306; 96365; 99284

== ENCOUNTER → 2020-09-10 10:25 | Outpatient (CLI) | payer MEDICARE, BC, SELFPAY ==
--- NOTE | 2020-09-10 10:44 | ECG_ITS ---
APPROVED REPORT Exam: Resting ECG HR:77 bpm ECG Measurements Heart Rate 77 AXES CO 194 P QRSd 84 QRS 16 QT 390 T 3 QTc 441 Conclusion Sinus rhythm with premature supraventricular complexes Isolated q in iii - nonsignificant waveform Abnormal ECG Electronically signed by : Darell Jaeger, 09/10/2020 21:47:55
== END ==
PROVIDERS: PCP Family Medicine; Visit Provider Family Medicine
DX: I49.9 Cardiac arrhythmia, unspecified (principal)
CPT/HCPCS: 93005

== ENCOUNTER 2020-10-27 18:20 | Emergency (ER) | payer MEDICARE, BC, SELFPAY ==
[2020-10-27 18:22] VITALS: BP 160/96; PULSE 73; RESP 18; TEMP 36.6; O2SAT 93; BMI 29.4
--- NOTE | 2020-10-27 18:40 | ECG_ITS ---
APPROVED REPORT Exam: Resting ECG HR:70 bpm ECG Measurements Heart Rate 70 AXES ME 124 P QRSd 76 QRS 12 QT 418 T 5 QTc 451 Conclusion Normal sinus rhythm Normal ECG Electronically signed by : Darell Jaeger, 10/28/2020 13:14:36
--- NOTE | 2020-10-27 18:40 | XR_ITS ---
PROCEDURE: XR CHEST PORTABLE CLINICAL HISTORY: weak Weakness, heart disease COMPARISON: CR XR CHEST 2V from 08/22/2020 FINDINGS: There is cardiomegaly with a bipolar pacemaker present. No lobar consolidation or collapse. There is increased density in the retrocardiac region consistent with a moderate-sized hernia No acute bony abnormalities. IMPRESSION: Cardiomegaly with hiatal hernia Dictated by: Corbin Millard MD 10/27/2020 19:42 Corbin Millard MD in [place] 10/27/2020 19:42
--- NOTE | 2020-10-27 18:41 | HMH.EDGENADL ---
ED Disposition Clinical Impression: COVID-19 Fatigue Qualifiers: Fatigue type: unspecified Qualified Code(s): R53.83 - Other fatigue Disposition: Home, Self-Care Condition on Discharge: Fair Instructions: DI for COVID-19 (Suspected or Confirmed ), COVID-19: Protecting Yourself When You're at High Risk Additional Instructions: You have been evaluated for fatigue loss of interest. Diagnosed with COVID-19. Please take all of your home medications as prescribed. take tylenol for aches, pain, fever. Follow-up with your primary care doctor. Return to the emergency department if you have any new or worsening symptoms, cough, shortness of breath Referrals: Aki Smith MD [Primary Care Provider] - Negrito Sanders MD [Staff Physician] - Time of Disposition: 19:57 - Critical Care Critical Care Time: No Attestation: On 10/27/20, the high probability of a clinically significant, sudden or life threatening deterioration of the following system(s) required my full and direct attention, intervention and personal management. The time I documented below is in addition to time spent performing reported procedures but includes the following listed in this critical care notation. Medical Decision Making - Medical Records Medical records reviewed: Yes: I reviewed the patient's medical records. - [place] Inquiry Pt receiving controlled substance: No Vital Signs: 10/27/20 18:22 Temperature 97.8 F Temperature Source Oral Pulse Rate [Right Radial] 73 Respiratory Rate 18 Blood Pressure [Right Arm] 160/96 H Blood Pressure Mean [Right Arm] 117 Blood Pressure Source [Right Arm] Automatic Cuff 02 Sat by Pulse Oximetry 93 L Oxygen Delivery Method Room Air - Lab Data Lab Results 10/27/20 18:59: WBC 6.0, RBC 4.52 L, Hgb 14.3, Hct 43.9, MCV 97.2 H, MCH 31.7 H, MCHC 32.6, RDW 14.5, Plt Count 238, MPV 7.5, Neut % (Auto) 58.7, Lymph % (Auto) 29.4, [place] % (Auto) 7.1, Eos % (Auto) 4.1, Baso % (Auto) 0.7, Neut # (Auto) 3.5, Lymph # (Auto) 1.8, [place] # (Auto) 0.4, Eos # (Auto) 0.3, Baso # (Auto) 0.0 10/27/20 18:59: Sodium 140, Potassium 4.4, Chloride 106, Carbon Dioxide 26, Anion Gap 12.4, BUN 30 H, Creatinine 1.40 H, Estimated Creat Clear 48, Estimated GFR 48 L, Est GFR ( Amer) 59, Glucose 124 H, Calcium 9.6, Total Bilirubin 0.4, AST 35, ALT 21, Alkaline Phosphatase 77, Total Protein 7.6, Albumin 4.3, Globulin 3.3 H, Albumin/Globulin Ratio 1.3 10/27/20 18:59: Total Creatine Kinase 55, NT-Pro-B Natriuret Pep 516 H 10/27/20 18:59: SARS-CoV-2 IgG Ab (Rapid) Positive A, SARS-CoV-2 IgM Ab (Rapid) Positive A Result diagrams: 10/27/20 18:59 10/27/20 18:59 Orders (Tests/Meds): ORDERS Category Date Time Status CMP [Comprehensive Metabolic Panel] Stat Lab 10/27/20 18:59 Results Covid-19 Nasal PCR (H) Routine Lab 10/27/20 19:50 Ordered Flu A&B Antigens, Rapid [Rapid Influenza A&B Antigens] Lab 10/27/20 18:59 Received Stat Trop I [Troponin I] Stat Lab 10/27/20 18:59 Results Troponin I Q3H Lab 10/27/20 21:45 Ordered Troponin I Q3H Lab 10/28/20 00:45 Ordered UA [Urinalysis and Microscopic] Stat Lab 10/27/20 18:40 Ordered EKG Request [ECG Request by /Amarilys] Stat Y 10/27/20 18:40 Ordered - Radiology Data #1 Image(s): Chest Image Reviewed: Yes I reviewed the patient's radiology image Pacemaker present. Slight cardiomegaly. No focal infiltrate. No multifocal pneumonia. No pleural effusion. Osseous structures unremarkable. - ECG Data Tracing #1 Sinus rhythm with ventricular rate of 70 bpm. QRS 76, QTc 451. No ST segment changes. No arrhythmia. Pacer spikes present. Medical Decision Narrative: In summary this is an 85-year-old male with history of hypertension, sleep apnea, intermittent A. fib presenting to the emergency department with dry mouth and fatigue. Patient clinically stable on arrival. Vital signs within normal limits. He is very pleasant. I do have concern for depression
--- NOTE | 2020-10-27 18:47 | PC.NURSE ---
notified ER pt SaO2 89% on 4L per NC, ER gave no new orders at this time states pt home goal is 90% will continue to monitor
--- NOTE | 2020-10-27 18:59 | PC.NURSE ---
v/s delayed due to attempting to draw blood.
[2020-10-27 19:00] VITALS: BP 154/90; PULSE 71; RESP 17; O2SAT 95
--- NOTE | 2020-10-27 19:20 | PC.NURSE ---
report given to juliannern
[2020-10-27 19:30] VITALS: BP 164/90; PULSE 70; RESP 15; O2SAT 93
[2020-10-27 19:30] LABS: Basophils % 0.7 % (0.1-2.0); Eosinophils # 0.3 K/mm3 (0.0-0.4); Eosinophils % 4.1 % (0.1-12.0); Hematocrit 43.9 % (42.0-52.0); Hemoglobin 14.3 g/dL (14.1-18.0); Lymphocytes # 1.8 K/mm3 (0.7-4.5); Lymphocytes % 29.4 % (10-50); Mean Corpuscular HGB Conc 32.6 g/dL (31.8-35.4); Mean Corpuscular Hemoglobin 31.7 pg (27.0-31.2); Mean Corpuscular Volume 97.2 fl (80-94); Mean Platelet Volume 7.5 fl (7.4-10.4); Monocytes # 0.4 K/mm3 (0.1-1.0); Monocytes % 7.1 % (1.7-9.3); Neutrophils # 3.5 K/mm3 (1.8-7.8); Neutrophils % 58.7 % (37.0-80.0); Platelet Count 238 K/mm3 (142-424); Red Blood Count 4.52 M/mm3 (4.60-6.20); Red Cell Distribution Width 14.5 % (11.5-17.5)
[2020-10-27 19:35] LABS: Chloride 106 mmol/L (98-107); Potassium 4.4 mmoL/L (3.5-5.1); Sodium 140 mmol/L (136-145)
[2020-10-27 19:37] LABS: Creatine Kinase 55 U/L (55-170)
[2020-10-27 19:38] LABS: Alanine Aminotransferase 21 U/L (12-78); Albumin Level 4.3 g/dl (3.5-5.0); Albumin/Globulin Ratio 1.3 (1.1-1.8); Alkaline Phosphatase 77 U/L (38-126); Anion Gap 12.4 mEq/L (5-15); Aspartate Amino Transferase 35 U/L (17-59); Bilirubin,Total 0.4 mg/dl (0.2-1.3); Blood Urea Nitrogen 30 mg/dl (9-20); Carbon Dioxide 26 mmol/L (22.0-30.0); Creatinine Clearance Estimated 48 mL/min (50-200); Estimated Glomerular Filt Rate 48 ml/min (>60); GFR (African American) 59 ML/MIN (>60); Globulin 3.3 g/dL (1.3-3.2); Total Protein,Serum 7.6 g/dl (6.3-8.2)
[2020-10-27 19:39] LABS: Calcium 9.6 mg/dl (8.4-10.2); Glucose 124 mg/dl (74-100)
[2020-10-27 19:48] LABS: NT Pro Brain Natriuretic Pep. 516 pg/mL (0-450)
[2020-10-27 19:49] LABS: Coronavirus 19 IgG Antibody Positive (Negative); Coronavirus 19 IgM Antibody Positive (Negative)
--- NOTE | 2020-10-27 19:51 | PC.NURSE ---
notified of positive COVID antibodies
[2020-10-27 19:58] LABS: Troponin I < 0.01 ng/ml (0.00-0.034)
[2020-10-27 20:00] VITALS: BP 152/88; PULSE 79; RESP 16; O2SAT 94
[2020-10-27 20:19] VITALS: BP 162/78; PULSE 76; RESP 16; TEMP 36.6; O2SAT 95
== END 2020-10-27 20:25 | disposition home or self-care (01) ==
PROVIDERS: Emergency Provider Emergency Medicine; PCP Family Medicine
DX: U07.1 COVID-19 (principal); I48.91 Unspecified atrial fibrillation; Z01.84 Encounter for antibody response examination; K21.9 Gastro-esophageal reflux disease without esophagitis; E78.5 Hyperlipidemia, unspecified; Z95.0 Presence of cardiac pacemaker; F17.290 Nicotine dependence, other tobacco product, uncomplicated; I10 Essential (primary) hypertension; Z79.899 Other long term (current) drug therapy
CPT/HCPCS: 71045; 80053; 82550; 83880; 84484; 85025; 86328; 87275; 87276; 93005; 99283; U0003

== ENCOUNTER 2020-11-14 13:12 | Emergency (ER) | payer MEDICARE, BC, SELFPAY ==
[2020-11-14 13:16] VITALS: BP 132/78; PULSE 70; RESP 16; TEMP 36.6; O2SAT 97
--- NOTE | 2020-11-14 13:22 | HMH.EDGENADL ---
ED Disposition Clinical Impression: Encounter for medical screening examination Disposition: Home, Self-Care Condition on Discharge: Good Referrals: Aki Smith MD [Primary Care Provider] - 3 days - Critical Care Critical Care Time: No Attestation: On , the high probability of a clinically significant, sudden or life threatening deterioration of the following system(s) required my full and direct attention, intervention and personal management. The time I documented below is in addition to time spent performing reported procedures but includes the following listed in this critical care notation. Medical Decision Making - Medical Records Medical records reviewed: Yes: I reviewed the patient's medical records. - [place] Inquiry Pt receiving controlled substance: No Vital Signs: 11/14/20 13:16 Temperature 97.8 F Temperature Source Oral Pulse Rate [Right Radial] 70 Respiratory Rate 16 Blood Pressure [Right Arm] 132/78 Blood Pressure Mean [Right Arm] 96 Blood Pressure Source [Right Arm] Automatic Cuff Blood Pressure Position [Right Arm] Sitting 02 Sat by Pulse Oximetry 97 Oxygen Delivery Method Room Air Medical Decision Narrative: Patient with intermittent sensation of feeling feverish, anxious, then resolved spontaneously. He states he feels completely back to baseline at this time. He recently had Covid IgG and IgM positive, negative swab and flu negative. He had laboratory work-up for similar symptoms about 2 weeks ago that was all negative. I have offered repeat labs, imaging here, but patient declines as he is feeling back to baseline and instead will decide to follow-up with his primary care provider. Patient son admits that the patient struggles quite a bit with anxiety and depression and there is some concern that patient is having anxiety attacks. His primary care doctor put him on sertraline 2 days ago in order to help with this. Encouraged to return if they change their mind about further work-up, otherwise discharged home to follow-up outpatient with PCP General Adult HPI - General Stated complaint: upset stomach, fever, chills Time Seen by Provider: 11/14/20 13:22 Mode of Arrival: Ambulatory Source of Information: Patient Limitations: No Limitations - History of Present Illness HPI narrative: This is an 85-year-old male with a past medical history significant for hypertension, sleep apnea, chronic kidney disease, intermittent A. fib who presents to the emergency department for intermittent episodes of feeling feverish, then spontaneous resolution over the last several weeks. Patient was seen here for similar symptoms, also associated with fatigue about 2 weeks ago. He states nothing really is changed. He started sertraline 2 days ago for depression. Son states that patient becomes very anxious and lonely sometimes because he lives by himself and does not get out much. He does live close to [facility] however. Patient does not have any chest pain, abdominal pain, shortness of breath, no objective fevers. He has not had any vomiting or diarrhea and has been eating and drinking without difficulty. Currently he feels back to baseline and is completely asymptomatic. No urinary symptoms. - Related Data Home Medications Medication Instructions Recorded Confirmed allopurinol 100 mg tablet 100 mg PO DAILY #30 tab 02/16/19 11/12/20 esomeprazole magnesium 40 mg 40 mg PO DAILY #30 cap 02/16/19 11/12/20 capsule,delayed release pravastatin 20 mg tablet 20 mg PO HS #30 tab 02/16/19 11/12/20 meloxicam 7.5 mg tablet 7.5 mg PO DAILY tab 08/01/20 11/12/20 Amlodipine Besylate [Amlodipine 10 mg PO DAILY 08/22/20 11/12/20 10mg Tab] Rivaroxaban [Xarelto 20mg Tablet*] 20 mg PO QPMWM 08/22/20 11/12/20 bisoproloL fumarate [Bisoprolol 10 mg PO BID 08/22/20 11/12/20 10mg Tablet] sertraline 50 mg tablet 50 mg PO DAILY tab 11/12/20 11/12/20 Allergies Allergy/AdvReac Type Severity Reaction Stat
[2020-11-14 13:30] VITALS: BP 132/85; PULSE 73; O2SAT 96
[2020-11-14 14:03] VITALS: BP 132/85; PULSE 73; RESP 16; TEMP 36.6; O2SAT 96
== END 2020-11-14 14:03 | disposition home or self-care (01) ==
PROVIDERS: Emergency Provider Emergency Medicine; PCP Family Medicine
DX: F41.8 Other specified anxiety disorders (principal); I10 Essential (primary) hypertension; K21.9 Gastro-esophageal reflux disease without esophagitis; E78.5 Hyperlipidemia, unspecified; I48.20 Chronic atrial fibrillation, unspecified; N18.9 Chronic kidney disease, unspecified; Z79.899 Other long term (current) drug therapy
CPT/HCPCS: 99282

== ENCOUNTER 2021-01-22 17:08 | Emergency (ER) | payer MEDICARE, BC, SELFPAY ==
[2021-01-22 17:17] VITALS: BP 156/84; PULSE 70; RESP 18; TEMP 36.6; O2SAT 98; BMI 29.9
--- NOTE | 2021-01-22 17:39 | HMH.EDGENADL ---
ED Disposition Clinical Impression: Cellulitis Qualifiers: Site of cellulitis: extremity Site of cellulitis of extremity: lower extremity Laterality: right Qualified Code(s): L03.115 - Cellulitis of right lower limb Disposition: Home, Self-Care Condition on Discharge: Good Instructions: Cellulitis, DI for Cellulitis -- Adult Prescriptions: cephALEXin [Cephalexin 500mg Tab] 500 mg PO Q6H 7 Days #28 tab Transmission Status: Pending to [facility] Referrals: Aki Smith MD [Primary Care Provider] - Time of Disposition: 17:45 - Critical Care Critical Care Time: No Attestation: On 01/22/21, the high probability of a clinically significant, sudden or life threatening deterioration of the following system(s) required my full and direct attention, intervention and personal management. The time I documented below is in addition to time spent performing reported procedures but includes the following listed in this critical care notation. Medical Decision Making - Medical Records Medical records reviewed: Yes: I reviewed the patient's medical records. - [place] Inquiry Pt receiving controlled substance: No Vital Signs: 01/22/21 17:17 Temperature 98 F Temperature Source Oral Pulse Rate [Radial] 70 Respiratory Rate 18 Blood Pressure [Right Arm] 156/84 H Blood Pressure Mean [Right Arm] 108 Blood Pressure Position [Right Arm] Sitting 02 Sat by Pulse Oximetry 98 Oxygen Delivery Method Room Air Orders (Tests/Meds): ORDERS Category Date Time Status CBC w/Auto Diff [Complete Blood Count Auto Diff] Stat Lab 01/22/21 17:16 Ordered CMP [Comprehensive Metabolic Panel] Stat Lab 01/22/21 17:16 Ordered Medical Decision Narrative: In summary this is an 85-year-old gentleman presenting to the emergency department with uniform redness, swelling to the right lower extremity from mid calf to foot. Patient clinically stable on arrival. Vital signs within normal limits. Physical exam is most consistent with cellulitis. Cannot exclude DVT. CBC and CMP obtained. Bedside ultrasound shows fully compressible common femoral vein from the saphenous takeoff to the mid thigh. Also shows compressive posterior popliteal vein. Lower extremity shows significant soft tissue cobblestoning, consistent with cellulitis. Given prescription for 500 mg Keflex. Recomended close follow-up with his primary care physician. Wound marked. Follow-up within 24 to 48 hours. Given return precautions for new or worsening pain, swelling, vomiting, other concerns. General Adult HPI - General Chief complaint: PAIN Stated complaint: right leg swollen and red Time Seen by Provider: 01/22/21 17:09 Mode of Arrival: Ambulatory Limitations: No Limitations Description of Symptoms (Recalled from ER Triage Doc. by RN): to ed per pvt car with c/o rt foot, leg redness, swelling starting thursday. pt denies fever, chills, nausea, vomiting. - History of Present Illness HPI narrative: 83-year-old male presenting to the emergency department with redness and swelling of his right lower extremity. Noticed it yesterday, got worse today. He has redness over his foot, ankle, lower leg. Goes to mid calf. It is not itchy, burning sensation. No particular pain in the calf. No groin pain. No injury. Noticed it as he was gardening, but does not believe that he sustained a puncture wound or any other injury. No rashes on his hands. No history of DVT or PE. No recent antibiotic use. Is not diabetic - Related Data Home Medications Medication Instructions Recorded Confirmed allopurinol 100 mg tablet 100 mg PO DAILY #30 tab 02/16/19 01/07/21 esomeprazole magnesium 40 mg 40 mg PO DAILY #30 cap 02/16/19 01/07/21 capsule,delayed release pravastatin 20 mg tablet 20 mg PO HS #30 tab 02/16/19 01/07/21 meloxicam 7.5 mg tablet 7.5 mg PO DAILY tab 08/01/20 01/07/21 Amlodipine Besylate [Amlodipine 10 mg PO DAILY 08/22/20 01/07/21 10mg Tab]
[2021-01-22 17:58] LABS: Chloride 107 mmol/L (98-107); Potassium 4.1 mmoL/L (3.5-5.1)
[2021-01-22 17:59] LABS: Sodium 141 mmol/L (136-145)
[2021-01-22 18:01] LABS: Alanine Aminotransferase 17 U/L (12-78); Albumin Level 4.2 g/dl (3.5-5.0); Albumin/Globulin Ratio 1.3 (1.1-1.8); Alkaline Phosphatase 88 U/L (38-126); Anion Gap 12.1 mEq/L (5-15); Aspartate Amino Transferase 30 U/L (17-59); Bilirubin,Total 0.5 mg/dl (0.2-1.3); Blood Urea Nitrogen 34 mg/dl (9-20); Carbon Dioxide 26 mmol/L (22.0-30.0); Creatinine Clearance Estimated 36 mL/min (50-200); Estimated Glomerular Filt Rate 34 ml/min (>60); GFR (African American) 41 ML/MIN (>60); Globulin 3.3 g/dL (1.3-3.2); Total Protein,Serum 7.5 g/dl (6.3-8.2)
[2021-01-22 18:02] LABS: Calcium 9.2 mg/dl (8.4-10.2); Glucose 125 mg/dl (74-100)
[2021-01-22 18:04] LABS: Basophils % 0.1 % (0.1-2.0); Eosinophils # 0.2 K/mm3 (0.0-0.4); Eosinophils % 1.7 % (0.1-12.0); Hematocrit 40.2 % (42.0-52.0); Hemoglobin 12.7 g/dL (14.1-18.0); Lymphocytes # 1.8 K/mm3 (0.7-4.5); Mean Corpuscular HGB Conc 31.7 g/dL (31.8-35.4); Mean Corpuscular Hemoglobin 30.2 pg (27.0-31.2); Mean Corpuscular Volume 95.3 fl (80-94); Mean Platelet Volume 7.6 fl (7.4-10.4); Monocytes # 0.9 K/mm3 (0.1-1.0); Monocytes % 8.5 % (1.7-9.3); Neutrophils # 7.3 K/mm3 (1.8-7.8); Neutrophils % 71.6 % (37.0-80.0); Platelet Count 211 K/mm3 (142-424); Red Blood Count 4.21 M/mm3 (4.60-6.20); Red Cell Distribution Width 14.5 % (11.5-17.5); White Blood Count 10.1 K/mm3 (4.8-10.8)
[2021-01-22 18:35] VITALS: BP 132/74; PULSE 74; RESP 16; TEMP 36.6; O2SAT 98
== END 2021-01-22 18:36 | disposition home or self-care (01) ==
PROVIDERS: Emergency Provider Emergency Medicine; PCP Family Medicine
DX: L03.115 Cellulitis of right lower limb (principal); I48.91 Unspecified atrial fibrillation; K21.9 Gastro-esophageal reflux disease without esophagitis; E78.5 Hyperlipidemia, unspecified; I10 Essential (primary) hypertension; Z95.0 Presence of cardiac pacemaker; Z87.891 Personal history of nicotine dependence; Z79.899 Other long term (current) drug therapy
CPT/HCPCS: 80053; 85025; 99282

== ENCOUNTER → 2023-04-06 07:23 | Outpatient (CLI) | payer MEDICARE, BC, SELFPAY ==
--- NOTE | 2023-04-06 07:56 | CA_ITS ---
FINAL REPORT TECHNIQUE: Grayscale, color Doppler and duplex Doppler ultrasound of the kidneys, aorta and renal arteries was performed. Multiple velocities were measured. CLINICAL HISTORY: HTN,HLD COMPARISON: None FINDINGS: Aorta velocity: 64 cm/sec Right kidney: 10.6 cm. Right intrarenal RI: 0.55-0.59 Right renal artery velocity: 96 cm/sec. Right RAR (Renal artery-Aortic Ratio): 1.49 Left Kidney: 10.1 cm. Left intrarenal RI: 0.51-0.63 Left renal artery velocity: 88 cm/sec. Left RAR (Renal Artery-Aortic Ratio): 1.38 Multitude of bilateral renal cysts. Largest on the right measures 3.6 x 3.4 cm and largest on the left measures 7.5 x 6.2 cm. No hydronephrosis bilaterally. IMPRESSION: No evidence of significant renal artery stenosis. Multiple bilateral renal cysts. CT angiogram or postcontrast MR angiogram would be more sensitive for evaluation of possible renal artery stenosis. Reviewed, Interpreted and Dictated by Anderson Le MD Transcribed by Jelly Ramon Authenticated and . [facility]
--- NOTE | 2023-04-06 09:05 | US_ITS ---
FINAL REPORT TECHNIQUE: Ultrasound images of the kidneys and bladder were obtained. CLINICAL HISTORY: N18.32 - Chronic kidney disease, stage 3b FINDINGS: The right kidney measures 9.72 cm in length. There is mild cortical atrophy. There is no hydronephrosis. The left kidney measures 10.55 cm in length. There is mild cortical atrophy. There is no hydronephrosis. There are a multitude of bilateral, benign renal cysts measuring up to 3.2 cm on the right and 5.9 cm on the left. Dominant cyst on the left is septated. IMPRESSION: Multiple bilateral renal cysts. Mild, bilateral renal cortical atrophy. Reviewed, Interpreted and Dictated by Anderson Le MD Transcribed by Brittany Cope Authenticated and [facility]
== END ==
PROVIDERS: PCP Family Medicine; Visit Provider Nurse Practitioner
DX: E78.2 Mixed hyperlipidemia (principal); I10 Essential (primary) hypertension; I48.0 Paroxysmal atrial fibrillation; N18.32 Chronic kidney disease, stage 3b; Z95.0 Presence of cardiac pacemaker
CPT/HCPCS: 76770; 93306; 93976

== ENCOUNTER → 2023-04-24 10:51 | Outpatient (CLI) | payer MEDICARE, BC, SELFPAY ==
--- NOTE | 2023-04-24 10:52 | CA_ITS ---
APPROVED REPORT Exam: Pharmacologic Technologist: Dorothy Rivas, Ht: 5 ft 7 in Wt: 194 lbs BSA: 2.00 m2 HR: 78 bpm BP: 192/103 mmHg Rhythm: Atrial pacing Indications: HTN Medical History Medical History: HTN, Hyperlipidemia Medications: Hydralazine,,,,, Pravastatin,,,,, Allopurinol,,,,, Flonase,,,,, MeLOXICAM,,,,, BisOPROLOL,,,,, CetIRIZINE,,,,, RIvaROXABAN,,,,, Ciprodex,,,,, Esomeprazle,,,,, Allergies: No known drug allergies Cardiac Risk Factors: HTN, Hyperlipidemia, , Smoking Stress Test Details Test: LEXISCAN HR Resting HR: 77 bpm Max Heart Rate (APMHR): 135 bpm Max HR Achieved: 88 bpm Target HR (85% APMHR): 115 bpm % of APMHR: 65 Recovery HR: 77 bpm BP Resting BP: 192/103 mmHg Max BP: 192/103 mmHg Recovery BP: 167.0/87.0 mmHg ECG Resting ECG: ATRIAL PACING, DIFFUSE T-WAVE CHANGES, POSSIBLE INFERIOR ND OF INDETERMINATE AGE Stress ECG: NO CHANGE Arrhythmia: NONE Recovery ECG: PACs Recovery Arrhythmia: NONE Clinical Exercise duration: 04:01 min Highest Stage Achieved: Exercise capacity: n/a METs Stress ECG Conclusion PT HAD MILD STOMACH DISCOMFORT NO CP TWO VENTRICULAR PACED BEATS, OCCASIONAL PACS NO SIGNIFICANT CHANGES UNREMARKABLE LEXISCAN STRESS MYOVIEW IMAGES REPORTED SEPARATELY Test Summary REST 03:56 . . 77 . 192/103 . . Stage 1 01:00 . . 69 . . . . Stage 2 01:00 . . 78 . 174/ 85 . . Stage 3 01:00 . . 75 . 162/ 84 . . Stage 4 01:00 . . 88 . . . . Stage 4 01:01 . . 87 . . . Stop exercise at 04:01 RECOVERY 01:00 . . 74 . 166/ 89 . . RECOVERY 02:00 . . 71 . 173/ 90 . . RECOVERY 03:00 . . 77 . 167/ 87 . . RECOVERY 03:14 . . 73 . 167/ 87 . . Electronically signed by : Zaida Boyd, 05/02/2023 15:12:54
--- NOTE | 2023-04-24 10:52 | NM_ITS ---
APPROVED REPORT Exam: Nuclear Stress Test Indication: High BP Patient Location: Outpatient Stress Tech: Dorothy Rivas MA Tech:Hattie DavisringtonSALOME RT(R)(N) Ht: 5 ft 7 in Wt: 194 lbs HR: 77 bpm BP: 192/103 mmHg BSA: 2.00 m2 TID: 0.90 BMI: 30.3 History: high BP Procedure: Patient received 0.4 mg of intravenous Lexiscan, resting heart rate 77 bpm, resting blood pressure 192/103 mmHg, with Lexiscan maximum heart rate achieved was 88 bpm which is 85 % of the maximum predicted heart rate and blood pressure was 192/103 mmHg. With Lexiscan, patient denied any complaint of chest pain. Cardiac Stress and Resting SPECT Images: Cardiac Stress and Resting SPECT images were obtained using technetium 99m Myoview 32.9 mCi stress and 10.98 mCi at rest. Technically difficult imaging due to the proximity of the GI tract to the cardiac border with surrounding radiotracer uptake. This is most apparent in the prone stress imaging. These findings may affect the diagnostic interpretation of the study findings. Resting and stress imaging in supine and prone positions demonstrate a medium-sized, moderate, fixed perfusion defect in the basal to mid inferior LV wall. Gated imaging demonstrates mild reduction in LV global systolic function. There is moderate hypokinesis in the basal inferior LV wall. LVEF is calculated at 47%. Conclusion: Technically difficult imaging due to the proximity of the GI tract to the cardiac border with surrounding radiotracer uptake. This is most apparent in the prone stress imaging. These findings may affect the diagnostic interpretation of the study findings. Medium-sized, moderate, fixed perfusion defect in the basal to mid inferior LV wall. No evidence of reversible ischemia. Gated imaging demonstrates mild reduction in LV global systolic function. There is moderate hypokinesis in the basal inferior LV wall. LVEF is calculated at 47%. Electronically signed by : Zaida Boyd, 05/02/2023 15:17:40
== END ==
PROVIDERS: PCP Family Medicine; Visit Provider Nurse Practitioner
DX: E78.5 Hyperlipidemia, unspecified (principal); I48.0 Paroxysmal atrial fibrillation; N18.30 Chronic kidney disease, stage 3 unspecified; R94.31 Abnormal electrocardiogram [ECG] [EKG]; Z95.0 Presence of cardiac pacemaker; I42.8 Other cardiomyopathies; I11.9 Hypertensive heart disease without heart failure
CPT/HCPCS: 78452; 93017; A9502; J2785

== ENCOUNTER → 2023-04-29 10:30 | Outpatient (POV) | payer MEDICARE, BC, SELFPAY | PROVIDERS: Visit Provider Specialist/Technologist | DX: Z00.00 Encounter for general adult medical examination without abnormal findings (principal) ==

== ENCOUNTER 2023-05-07 07:40 | Day surgery (SDC) | payer MEDICARE, BC, SELFPAY ==
[2023-05-07] VITALS (9 sets, daily range): BP systolic 146–184; BP diastolic 88–114; PULSE 68–73; RESP 16–20; TEMP 36.7; O2SAT 92–97; BMI 30.2
--- NOTE | 2023-05-07 | IR_ITS ---
APPROVED REPORT Patient Location: Outpatient Dewatering Filtering Supervisor: SALOME Navarrete RT (R) PROCEDURES Left heart catheterization Left ventriculogram Selective coronary angiogram INDICATION High risk abnormal Myoview , Angina pectoris Informed consent was obtained prior to the procedure. COMPLICATIONS None Estimated Blood Loss: Less than 10 mls TECHNIQUE One percent lidocaine used to anesthetize the right anterior aspect of the wrist. The right radial artery was accessed via the Seldinger technique. A 6 Mongolian sheath was placed in the right radial artery. 150 mg magnesium sulfate, 800 mcg of nitroglycerin, 1mg Lidocaine and 5000 U Heparin were given through the arterial sheath. The papa catheter was also used to perform left heart catheterization, left ventriculogram and selective coronary angiogram. At the end of the procedure the sheath was removed good hemostasis was achieved using Traclet band, patient was transferred to the postop holding area in stable condition. ANGIOGRAPHIC RESULTS The left main artery Normal The left anterior descending artery Normal The circumflex artery Normal The right coronary artery Dominant normal The MCLEOD ventriculogram reveals Normal 65% The left ventricular end-diastolic pressure 30 to 35 mmHg IMPRESSION Normal coronary arteries Normal ejection fraction Moderate to severely elevated LVEDP consistent with severe diastolic dysfunction PLAN 1. Change hydrochlorothiazide to furosemide 40 daily plus spironolactone 100 mg daily with plans to uptitrate as needed 2. Continue treatment for obstructive sleep apnea Electronically signed by : Negrito Sanders MD 05/07/2023 10:23:14
[2023-05-07 08:32] LABS: Blood Urea Nitrogen 21 mg/dl (9-20); Calcium 9.2 mg/dl (8.4-10.2); Carbon Dioxide 28 mmol/L (22.0-30.0); Creatinine Clearance Estimated 47 mL/min (50-200); Estimated Glomerular Filt Rate 48 ml/min (>60); GFR (African American) 58 ML/MIN (>60); Glucose 101 mg/dl (74-100); Potassium 4.3 mmoL/L (3.5-5.1); Sodium 139 mmol/L (136-145)
[2023-05-07 08:46] LABS: Anion Gap 9.3 mEq/L (5-15); Chloride 106 mmol/L (98-107)
[2023-05-07 10:29] LABS: Hematocrit 41.2 % (42.0-52.0); Hemoglobin 13.5 g/dL (14.1-18.0); Mean Corpuscular HGB Conc 32.8 g/dL (31.8-35.4); Mean Corpuscular Hemoglobin 29.6 pg (27.0-31.2); Mean Corpuscular Volume 90.4 fl (80-94); Mean Platelet Volume 9.8 fl (7.4-10.4); Neutrophils % 55.6 % (37.0-80.0); Platelet Count 220 K/mm3 (142-424); Red Blood Count 4.56 M/mm3 (4.60-6.20); Red Cell Distribution Width 14.7 % (11.5-17.5); White Blood Count 5.9 K/mm3 (4.8-10.8)
[2023-05-07 10:30] LABS: Basophils % 0.3 % (0.1-2.0); Eosinophils # 0.3 K/mm3 (0.0-0.4); Eosinophils % 4.6 % (0.1-12.0); Lymphocytes # 1.8 K/mm3 (0.7-4.5); Lymphocytes % 30.2 % (10-50); Monocytes # 0.5 K/mm3 (0.1-1.0); Neutrophils # 3.3 K/mm3 (1.8-7.8)
--- NOTE | 2023-05-07 10:52 | SUR.PHASEII ---
pt arrived to post cath recovery via stretcher with son at bedside.
--- NOTE | 2023-05-07 14:00 | P.CONPHA_ITS ---
[facility] [address] [facility] Judge Discharge Med Environmental Engineering Technician: Rene Barbaence has received discharge medication counseling on the following medications: BISOPROLOL 10 MG DAILY ASPIRIN 81 MG DAILY CLOPIDOGREL 75 MG DAILY PRAVASTATIN 20 MG LD ROGEL NOT WANTING TO START LIDIA/ARB AT THIS TIME.
== END 2023-05-07 14:16 | disposition home or self-care (01) ==
PROVIDERS: PCP Family Medicine; Visit Provider Internal Medicine
DX: I25.118 Atherosclerotic heart disease of native coronary artery with other forms of angina pectoris (principal); Z79.01 Long term (current) use of anticoagulants; I12.9 Hypertensive chronic kidney disease with stage 1 through stage 4 chronic kidney disease, or unspecified chronic kidney disease; I25.82 Chronic total occlusion of coronary artery; Z79.899 Other long term (current) drug therapy; Z87.891 Personal history of nicotine dependence; N18.32 Chronic kidney disease, stage 3b; I42.9 Cardiomyopathy, unspecified; I48.0 Paroxysmal atrial fibrillation; Z95.0 Presence of cardiac pacemaker
CPT/HCPCS: 80048; 85025; 92928; 93454; 99152; 99153; C1725; C1769; C1876; C9600; J1644; Q9967

== ENCOUNTER 2023-05-16 14:28 | Emergency (ER) | payer MEDICARE, BC, SELFPAY ==
[2023-05-16 14:33] VITALS: BP 156/89; PULSE 71; RESP 18; TEMP 36.7; O2SAT 98; BMI 30.4
--- NOTE | 2023-05-16 15:04 | HMH.EDGENADL ---
Discharge Plan Disposition Patient Disposition: Home, Self-Care Condition: Good Chief Complaint: Allergic Reaction Prescriptions Prescriptions: No Action pravastatin 20 mg tablet 20 mg PO HS Qty: 30 Patient Comments: TAKE 1 TABLET BY MOUTH ONCE DAILY AT BEDTIME esomeprazole magnesium 40 mg capsule,delayed release(DR/EC) 40 mg PO DAILY Qty: 30 Patient Comments: TAKE 1 CAPSULE BY MOUTH ONCE DAILY allopurinol 100 mg tablet 100 mg PO DAILY Qty: 30 Patient Comments: TAKE 1 TABLET BY MOUTH ONCE DAILY meloxicam 7.5 mg tablet 7.5 mg PO DAILY cetirizine 10 mg tablet 10 mg PO HS Patient Comments: TAKE ONE TABLET BY MOUTH EVERY NIGHT DIRECTED fluticasone propionate 50 mcg/actuation spray,suspension 1 spray intranasal DAILY Patient Comments: instill 1 SPRAY IN EACH NOSTRIL ONCE DAILY rivaroxaban 20 mg tablet 20 mg PO QPMWM Rx Instructions: must administer with a meal/food hydralazine 25 mg tablet 25 mg PO TID bisoprolol fumarate 10 mg tablet See Rx Instructions .ROUTE .COMPLEX Rx Instructions: TAKE ONE TABLET BY MOUTH TWICE DAILY ciprofloxacin-dexamethasone [Ciprodex] 0.3-0.1 % drops,suspension 3 drp otic (ear) BID clopidogrel [Plavix] 75 mg Tablet 75 mg PO DAILY 30 Days Qty: 30 3RF aspirin 81 mg Tablet,Chewable 81 mg PO DAILY 3 Days Qty: 3 30RF amlodipine 10 mg Tablet 10 mg PO DAILY Qty: 30 3RF Referrals Follow up/Referrals: Aki Smith MD [Primary Care Provider] - See instructions Activity Restrictions/Add. Instructions Additional Instructions/Restrictions: You were evaluated in the emergency department today. Take Benadryl at home as needed for itching. Take Tylenol and ibuprofen at home as needed for pain. Follow-up with your primary care provider over the next 3 days for reassessment. Return to the emergency department for any new or worsening symptoms. Clinical Impressions Clinical Impression: Bites and stings, insect Qualifiers: Encounter type: initial encounter Qualified Code(s): W57.XXXA - Bitten or stung by nonvenomous insect and other nonvenomous arthropods, initial encounter Instructions Patient Instructions: DI for Insect Bites and Stings Discharge ED Provider: Destiny Mckenna General Adult HPI General Chief complaint: Allergic Reaction Stated complaint: stung by bees, swelling Time Seen by Provider: 07/29/23 14:48 Mode of Arrival: Ambulatory Source of Information: Patient Limitations: No Limitations Description of Symptoms (Recalled from ER Triage Doc. by RN): pt presents to ED stating he was stung by a bee approx 30 mins ago. pt denies SOA or difficulty swallowing. History of Present Illness HPI narrative: This patient is an 88-year-old male with a history of CAD status post recent stenting, paroxysmal atrial fibrillation, hypertension, hyperlipidemia, hypertensive heart disease, bradycardia status post pacemaker, MARJAN, and GERD presented to the emergency department for evaluation with concern for localized swelling to his face and arms after he was stung multiple times by hornets outside. This happened approximate 30 minutes prior to arrival. He denies any prior history of allergic reaction to insect bite or stings. He states that he is actually feeling fine aside from the localized swelling and pain, but they were worried this could interfere with his cardiac stents. He has no oropharyngeal swelling, shortness of breath, chest pain, abdominal pain, nausea, vomiting, diarrhea, or other concerns. Related Data Home Medications Medication Instructions Recorded Confirmed allopurinol 100 mg tablet 100 mg PO DAILY gout #30 tabs 02/16/19 05/07/23 esomeprazole magnesium 40 mg 40 mg PO DAILY GERD #30 caps 02/16/19 05/07/23 capsule,delayed release pravastatin 20 mg tablet 20 mg PO HS Cholesterol #30 tabs 02/16/19 05/07/23 meloxicam 7.5 mg tablet 7.5 mg PO DAILY antiinf
[2023-05-16 15:40] VITALS: BP 122/72; PULSE 71; RESP 16; TEMP 36.6; O2SAT 98
== END 2023-05-16 15:44 | disposition home or self-care (01) ==
PROVIDERS: Emergency Provider Emergency Medicine; PCP Family Medicine
DX: R22.0 Localized swelling, mass and lump, head (principal); R22.33 Localized swelling, mass and lump, upper limb, bilateral; T63.441A Toxic effect of venom of bees, accidental (unintentional), initial encounter; I48.91 Unspecified atrial fibrillation; I11.9 Hypertensive heart disease without heart failure; Z87.891 Personal history of nicotine dependence; G47.33 Obstructive sleep apnea (adult) (pediatric); K21.9 Gastro-esophageal reflux disease without esophagitis
CPT/HCPCS: 99283

== ENCOUNTER 2023-05-29 10:22 | Outpatient (RCR) | payer MEDICARE, BC, SELFPAY | END 2023-08-19 11:30 | disposition home or self-care (01) | LOC: PT 10:22 | PROVIDERS: Visit Provider Internal Medicine | DX: I25.10 Atherosclerotic heart disease of native coronary artery without angina pectoris (principal); Z95.5 Presence of coronary angioplasty implant and graft | CPT/HCPCS: 93798 ==

== ENCOUNTER → 2023-07-06 10:02 | Outpatient (CLI) | payer MEDICARE, BC, SELFPAY ==
[2023-07-06 10:48] LABS: Basophils % 0.3 % (0.1-2.0); Eosinophils # 0.3 K/mm3 (0.0-0.4); Eosinophils % 4.2 % (0.1-12.0); Hematocrit 46.4 % (42.0-52.0); Hemoglobin 14.4 g/dL (14.1-18.0); Lymphocytes # 1.4 K/mm3 (0.7-4.5); Lymphocytes % 21.5 % (10-50); Mean Corpuscular Hemoglobin 29.2 pg (27.0-31.2); Mean Platelet Volume 7.4 fl (7.4-10.4); Monocytes # 0.5 K/mm3 (0.1-1.0); Monocytes % 7.3 % (1.7-9.3); Neutrophils # 4.4 K/mm3 (1.8-7.8); Neutrophils % 66.6 % (37.0-80.0); Platelet Count 271 K/mm3 (142-424); Red Blood Count 4.94 M/mm3 (4.60-6.20); Red Cell Distribution Width 15.4 % (11.5-17.5); White Blood Count 6.6 K/mm3 (4.8-10.8)
[2023-07-06 12:09] LABS: Chloride 105 mmol/L (98-107)
[2023-07-06 12:10] LABS: Potassium 4.6 mmoL/L (3.5-5.1); Sodium 139 mmol/L (136-145)
[2023-07-06 12:12] LABS: Blood Urea Nitrogen 21 mg/dl (9-20); Estimated Glomerular Filt Rate 44 ml/min (>60); GFR (African American) 54 ML/MIN (>60)
[2023-07-06 12:13] LABS: Alanine Aminotransferase 24 U/L (12-78); Albumin Level 3.8 g/dl (3.5-5.0); Alkaline Phosphatase 103 U/L (38-126); Anion Gap 13.6 mEq/L (5-15); Aspartate Amino Transferase 33 U/L (17-59); Bilirubin,Direct 0.5 mg/dl (0.0-0.4); Bilirubin,Indirect 0.2 mg/dL (0.0-0.9); Bilirubin,Total 0.7 mg/dl (0.2-1.3); Bilirubin,Unconjugated 0.2 mg/dL (0.0-1.1); Carbon Dioxide 25 mmol/L (22.0-30.0); Chol/HDL Ratio 3.2 (1-3.5); Cholesterol 118 mg/dl (140-200); Glucose 102 mg/dl (74-100); HDL Cholesterol 37 mg/dl (40-60); Magnesium 1.8 mg/dl (1.6-2.3); Total Protein,Serum 6.5 g/dl (6.3-8.2); Triglycerides 112 mg/dl (30-150); VLDL Cholesterol 22 mg/dL (0-40)
[2023-07-06 12:24] LABS: Direct LDL Cholesterol 54.68 mg/dL (100-129)
[2023-07-06 12:30] LABS: Free T4 (Free Thyroxine) 1.47 ng/dl (0.78-2.19)
[2023-07-06 12:44] LABS: Thyroid Stimulating Hormone 2.34 uIU/mL (0.465-4.68)
== END ==
PROVIDERS: PCP Family Medicine; Visit Provider Nurse Practitioner Family
DX: E78.5 Hyperlipidemia, unspecified (principal); I11.9 Hypertensive heart disease without heart failure; I25.10 Atherosclerotic heart disease of native coronary artery without angina pectoris; I48.0 Paroxysmal atrial fibrillation
CPT/HCPCS: 36415; 80048; 80061; 80076; 83735; 84439; 84443; 85025

== ENCOUNTER → 2023-07-17 07:41 | Outpatient (CLI) | payer MEDICARE, BC, SELFPAY ==
--- NOTE | 2023-07-17 07:45 | CA_ITS ---
APPROVED REPORT EXAM: Limited 2D Echocardiogram Cream Separator Operator: Antonette Martínez RT(R) Ht: 5 ft 7 in Wt: 188lbs BSA: 1.97 BP: 147/48 mmHg Indications: Assess EF, EF 40-50% 04/07/23, CM, SOA, CAD, HTN, hyperlipidemia, PAF Echo Enhancing Agent Indication: Endocardial border delineation Agent(s) / Amount(s) Used: Definity 2 cc M-Mode Dimensions RVDd 2.57 cm (0.9-2.6) LVDd 4.78 cm (3.5-5.7) LVDs 3.85 cm (3.5-5.7) IVSd 1.14 cm (0.6-1.1) PWd 0.75 cm (0.6-1.1) EF (Teich) 40.00% FS 19.50% EDV (Teich) 106.50 mL ESV (Teich) 63.90 mL Conclusion This is a limited TTE to evaluate for LVEF. Limited windows were obtained. Left ventricle appears normal in size. There is increased LV wall thickness. There are no regional wall motion abnormalities noted. LVEF is 55%. Contrast administration demonstrates no evidence of LV thrombus When visually compared to prior study from 04/2023, the LVEF is now improved. Electronically signed by : Zaida Boyd MD 07/17/2023 17:23:53
== END ==
PROVIDERS: PCP Family Medicine; Visit Provider Internal Medicine
DX: I48.0 Paroxysmal atrial fibrillation (principal); R06.02 Shortness of breath
CPT/HCPCS: 93308; Q9957